=== PATIENT | female | born 2000 | race Caucasian/White ===

== ENCOUNTER 2020-01-02 00:23 | Emergency (ER) | payer OTHER, SELFPAY ==
[2020-01-02 00:40] VITALS: BP 155/85; PULSE 109; RESP 16; TEMP 36.7; O2SAT 98; BMI 37.1
--- NOTE | 2020-01-02 00:44 | ECG_ITS ---
Test Reason : SHOULDER PAIN Blood Pressure : / mmHG Vent. Rate : 079 BPM Atrial Rate : 079 BPM P-R Int : 142 ms QRS Dur : 090 ms QT Int : 378 ms P-R-T Axes : 038 058 040 degrees QTc Int : 433 ms Normal sinus rhythm Normal ECG No previous ECGs available Referred By: Suresh Whalen Electronically Signed By:TOYA TUTTLE MD
--- NOTE | 2020-01-02 00:48 | ED.BACK ---
HPI - Back Pain/Injury General Chief Complaint: General Medical Stated Complaint: SHOULDER PAIN Time Seen by Provider: 01/02/20 00:41 Source: patient Mode of arrival: ambulatory Limitations: no limitations History of Present Illness HPI Narrative: patient with no significant past medical history slept on the left side woke up just prior to arrival noticed pain in left upper back also feel heat feeling in the chest no shoulder pain as such good range of movement no shortness of breath no cough no prior back problems Related Data Allergies Allergy/AdvReac Type Severity Reaction Status Date / Time No Known Allergies Allergy Unverified 10/27/19 19:38 [No Known Allergies*] Review of Systems Review of Systems: REVIEW OF SYSTEMS: Pertinent positives and negatives are stated above in the history. GEN: no fevers, chills, fatigue HEENT: no nasal congestion, sore throat, ear pain NEURO: no headache, dizziness, focal weakness PULM: no cough, shortness of breath CV: no chest pain, palpitations, LE edema ABD: no abdominal pain, nausea, vomiting, diarrhea : no dysuria, urgency, frequency SKIN: no rash ROS otherwise negative x 10 Physical Exam Vital Signs: Vital Signs: Last Vital Signs Temp 98.1 F 01/02/20 00:40 Pulse 109 H 01/02/20 00:40 Resp 16 01/02/20 00:40 BP 155/85 H 01/02/20 00:40 Pulse Ox 98 01/02/20 00:40 Body Mass Index 37.1 Const: General: cooperative, healthy appearing, comfortable, no acute distress, well developed, alert and awake HENMT: Head: Yes normal to inspection Eyes: General: appearance normal, both eyes and all related structures Neck: Neck: Yes normal visual inspection and Yes full ROM Resp: Effort & Inspection: normal respiratory effort Auscultation: clear to auscultation bilaterally Cardio: Rate: regular rate Rhythm: regular rhythm Heart sounds: S1 normal heart sound present and S2 normal heart sound present GI: Inspection: Yes normal to inspection Palpation (GI): Soft to palpation, Firmness to palpation present (GI) and nontender : General: Yes no CVA tenderness Back/Spine/Pelvis: Back: no CVA tenderness Cervical Spine: normal cervical lordosis Back/spine/pelvis image: 1. tender area with muscle spasm or rash MDM - Back Pain/Injury MDM Narrative Medical decision making narrative: patient pain likely from muscular origin EKG is normal will discharge her home advised to use ice pack ECG Data Attestation: I personally reviewed and interpreted this ECG as follows: ECG interpretation date: 01/02/20 Interpretation: normal sinus rhythm heart rate 79 normal axis normal intervals no acute ST T wave changes impression normal EKG
== END 2020-01-02 01:40 | disposition home or self-care (01) ==
LOC: HO.ED 01:13
PROVIDERS: Emergency Provider Internal Medicine
DX: M25.519 Pain in unspecified shoulder (principal)
CPT/HCPCS: 93005; 99283

== ENCOUNTER 2020-01-23 11:58 | Outpatient (REF) | payer OTHER, SELFPAY | END 2020-01-23 11:59 | disposition home or self-care (01) | LOC: HO.LAB 11:58 | PROVIDERS: Visit Provider Internal Medicine | DX: Z20.828 Contact with and (suspected) exposure to other viral communicable diseases (principal) | CPT/HCPCS: C9803; U0003 ==

== ENCOUNTER 2020-04-23 14:55 | Emergency (ER) | payer OTHER, MEDICAID, SELFPAY ==
--- NOTE | 2020-04-23 15:22 | ED_ITS ---
HPI - General Adult General Chief complaint: General Medical Stated complaint: COVID POS VOMITING DIARRHEA Time Seen by Provider: 04/23/20 15:15 Source: patient Mode of arrival: ambulatory Limitations: no limitations History of Present Illness HPI narrative: 19 y/o female with recently diagnosed COVID-19 on 04/18 who presents with generally feeling unwell as well as new onset non-bloody vomiting and diarrhea that started yesterday. She denies abdominal pain. Denies chance of . She has been taking OTC Pepto with minimal improvement. She is able to tolerate some Gatorade today but that is it. She denies fevers or chills but has had ongoing mild dry cough since she was diagnosed with COVID. No recent antibiotic use, no sick contacts, no food bourne exposure. MD complaint: vomiting and diarrhea Onset (ago): day(s) (1) Severity: moderate Exacerbating factors: eating Associated symptoms: cough, headaches, loss of appetite and malaise Treatments prior to arrival: none Related Data Previous Rx's Medication Instructions Recorded ondansetron 4 mg PO Q6H PRN #8 tab 04/23/20 Allergies Allergy/AdvReac Type Severity Reaction Status Date / Time No Known Allergies Allergy Unverified 10/27/19 19:38 [No Known Allergies*] Review of Systems Review of Systems: Constitutional: No Fever, No Chills ENT/Mouth: No sore throat, No Rhinorrhea, No Swallowing Difficulty Cardiovascular: No Chest Pain, No SOB Respiratory: + Cough, No Sputum, No Wheezing, No dyspnea Gastrointestinal: + Nausea, + Vomiting, + Diarrhea, No abdominal Pain, No Hematochezia, No Melena Genitourinary: No Dysuria, No Urinary Frequency, No Hematuria Musculoskeletal: No joint pain, No Myalgias Skin: No Skin Lesions, No rash Neuro: No Weakness, No Numbness, No Dizziness, + Headache Heme/Lymph: No Bruising, No Lymphadenopathy PMFSH Past Medical History Attestation statement: The following information was validated with the patient. Social History Social History Alcohol intake: never Smoking Status: Never smoker Use of substances other than those prescribed or required for medical reasons: No Advance Directives: Yes Advance Directives Information Provided: Yes Advance Directives on File: No Physical Exam Vital Signs: Vital Signs: Last Vital Signs Temp 98.0 F 04/23/20 15:23 Pulse 62 04/23/20 15:23 Resp 16 04/23/20 15:23 BP 126/79 04/23/20 15:23 Pulse Ox 98 04/23/20 15:23 Body Mass Index 37.1 Appearance: Alert. Oriented X3. No acute distress. Eyes: Pupils equal, round and reactive to light. ENT: Pharynx normal. TM's normal bilaterally. Neck: Normal inspection. Neck supple. CVS: Normal heart rate and rhythm. Pulses normal. Respiratory: No respiratory distress. Breath sounds normal. Abdomen: Soft and nontender. +BS x4 Skin: Skin warm and dry. Normal skin color. Normal skin turgor. No rashes. Extremities: No lower extremity edema. Neuro: Oriented X 3. Non-focal. Steady gait. Course Course Course Narrative: 19 y/o female presenting with nausea, vomiting, diarrhea in the setting of COVID-19. She appears well on exam. Her VS are stable without tachycardia. Low clinical suspicion for dehydration. She is tolerating PO liquids. She has been counseled on the course of COVID and the symptomatic management of this. Lydiaan sent to pharmacy. She is stable for discharge with instructions to f/u with her PCP and return to the ER if symptoms worsen. Discharge Plan Discharge Clinical Impression: COVID-19 Vomiting Qualifiers: Vomiting type: unspecified Vomiting Intractability: unspecified Nausea presence: unspecified Qualified Code(s): R11.10 - Vomiting, unspecified Patient Disposition: Home, Self-Care Instructions: Acute Nausea and Vomiting (ED), COVID-19 (Coronavirus Disease 2019) (ED) Additional Instructions: Your vomiting and diarrhea is most likely due to COVID-19. Recommend supportive care with prescribed anti-nausea medication - take as pre scribed. Recommend over the counter Imodium 2-4 mg for diarrhea. Stick to a bland diet while you are feeling unwell. Follow up with your doctor this week. If your symptoms worsening or if you develop any new or concerning symptoms come back to the ER for further evaluation. Prescriptions: New ondansetron 4 mg tablet,disintegrating 4 mg PO Q6H PRN (Reason: nausea and vomiting) Qty: 8 RF: 0
[2020-04-23 15:23] VITALS: BP 126/79; PULSE 62; RESP 16; TEMP 36.7; O2SAT 98; BMI 37.1
== END 2020-04-23 16:36 | disposition home or self-care (01) ==
PROVIDERS: Emergency Provider Emergency Medicine
DX: U07.1 COVID-19 (principal); R11.10 Vomiting, unspecified; R19.7 Diarrhea, unspecified
CPT/HCPCS: 99283; 99284

== ENCOUNTER 2023-01-26 09:11 | Emergency (ER) | payer MEDICAID, SELFPAY ==
--- NOTE | ~2023-01-26 | US_ITS ---
EXAMINATION: ULTRASOUND PELVIC, COMPLETE CLINICAL INFORMATION: Nausea and vomiting. Unknown LMP. Beta-hCG 37,765 COMPARISON: None. TECHNIQUE: Transvaginal: Used to better visualize pelvic structures Transabdominal: Not adequate for visualization. Spectral Doppler and color Doppler exam was utilized. LMP: Uncertain FINDINGS: UTERUS: Single intrauterine gestation present. There is a yolk sac or pole present. heart rate 106 bpm. Latexo-rump length 0.25 cm. Gestational age by this measurement is 5 weeks 6 days. ADNEXA: Ovarian vascularity:Doppler demonstrates both arterial and venous vascular flow in the right and left ovary. No evidence of ovarian torsion. Right Ovary: 3.2 x 1.8 x 1.8 cm Left Ovary: 3.8 x 2.1 x 2.3 cm Cul-de-sac: No Fluid US/US OB pelvic and transvaginal IMPRESSION: 1. Single intrauterine gestation. Estimated gestational age by this exam is 5 weeks 6 days. 2. heart rate measured at 106 beats per minute which is low. This may be due to early gestational age. Consider short-term follow-up in 2-3 weeks.
[2023-01-26 09:21] VITALS: BP 133/64; PULSE 75; RESP 20; TEMP 36.6; O2SAT 99
[2023-01-26 09:32] LABS: Baso%MD 0.4 %; Eos%MD 0.2 %; Hematocrit 40.6 % (37.0-47.0); Hemoglobin 13.7 g/dl (12.0-16.0); IG%MD 0.3 %; Lymph%MD 13.4 %; Mean Corpuscular HGB Conc 33.7 g/dl (31.0-35.0); Mean Corpuscular Hemoglobin 29.6 pg (27.0-33.0); Mean Corpuscular Volume 87.7 fL (80.0-98.0); Mean Platelet Volume 9.8 fL (9.4-12.3); Neut%MD 78.7 %; Platelet Count 440 X10*3/uL (160-400); Red Blood Count 4.63 X10*6/uL (4.20-5.50); Red Cell Distribution Width 12.1 % (11.0-16.0); White Blood Count 15.3 X10*3/uL (4.8-10.8)
[2023-01-26 09:52] LABS: Anion Gap 13 (12-20); Blood Urea Nitrogen 11 mg/dL (9-16); Calcium 9.7 mg/dL (8.4-10.2); Carbon Dioxide 22 mmol/L (22-29); Chloride 104 mmol/L (96-108); Creatinine Clr Calc Pharmacy 134.8; Estimated Glomerular Filt Rate > 60; Glucose Random 105 mg/dL (60-115); Potassium 3.3 mmol/L (3.3-5.1); Sodium 136 mmol/L (135-145)
[2023-01-26 10:00] LABS: Band Neutrophils Percent 0 % (3-5); Eosinophils Absolute Manual 0.2 X10*3/uL (0.0-0.4); Eosinophils Percent Manual 1 % (0-4); Lymphocytes Percent Manual 13 % (20-40); Monocytes Absolute Manual 1.1 X10*3/uL (0.1-1.2); Monocytes Percent Manual 7 % (2-11); Neutrophils Absolute Manual 12.1 X10*3/uL (2.0-8.3); Neutrophils Percent Manual 79 % (45-73)
[2023-01-26 10:01] LABS: Platelet Estimate NORMAL (NORMAL); Platelet Morphology Comment NORMAL; RBC Morphology NORMAL
[2023-01-26 10:11] LABS: HCG Quantitative 37765 mIU/mL
[2023-01-26 11:51] LABS: Influenza A PCR NEGATIVE (Negative); Influenza B PCR NEGATIVE (Negative); Resp Syncy Virus RNA Qual PCR NEGATIVE (Negative); SARS COV2 PCR INHOUSE NEGATIVE (Negative)
[2023-01-26 16:17] VITALS: BP 126/74; PULSE 74; RESP 18; TEMP 37.1; O2SAT 100
--- NOTE | 2023-01-26 16:19 | PC.NURSE ---
Patient states she is and doesn't know how far along she is.
--- NOTE | 2023-01-26 16:43 | ED_ITS ---
HPI - Nausea/Vomiting/Diarrhea General Chief complaint: Nausea/Vomiting/Diarrhea Stated complaint: vomiting Time Seen by Provider: 01/26/23 16:18 Source: patient Mode of arrival: ambulatory Limitations: no limitations History of Present Illness HPI Narrative: A 22-year-old female who presents emergency department for evaluation of nausea, vomiting with bilious emesis for the past 2 days and a single episode of diarrhea today. She states she has been unable to tolerate oral intake due to her nausea and vomiting. She reports generalized lower abdominal discomfort. Patient reports that she took a home test at the end of December and found out that she was . Her last menstrual period was 11/14/2022 making her estimated due date 08/22/23. She has her first appointment scheduled for 02/16/2022 with [facility]. She reports that 1 week ago she was treated for urinary tract infection with an antibiotic, she is uncertain the name of it. Related Data Previous Rx's Medication Instructions Recorded ondansetron 4 mg disintegrating 4 mg PO Q6H PRN nausea and 04/23/20 tablet vomiting #8 tabs cefuroxime axetil 250 mg tablet 250 mg PO BID #13 tabs 01/26/23 doxylamine succinate 25 mg tablet 25 mg PO BEDTIME PRN vomiting #14 01/26/23 (Unisom (doxylamine)) tabs pyridoxine (vitamin B6) 25 mg 25 mg PO TID 7 days #21 tabs 01/26/23 tablet Allergies Allergy/AdvReac Type Severity Reaction Status Date / Time No Known Allergies Allergy Unverified 10/27/19 19:38 [No Known Allergies*] Review of Systems 2 Review of Systems: Yes all other systems are reviewed and are negative [facility] Past Medical History Attestation statement: The following information was validated with the patient. Source: old records reviewed Social History Social History Alcohol intake: never Advance Directives: No Advance Directives Information Provided: No Physical Exam 2 Vital Signs: Vital Signs: Last Vital Signs Temp 98.8 F 01/26/23 16:17 Pulse 74 01/26/23 16:17 Resp 18 01/26/23 16:17 BP 126/74 01/26/23 16:17 Pulse Ox 100 01/26/23 16:17 O2 Del Method Room Air 01/26/23 16:17 BMI result Body Mass Index 30.0 Appearance: Alert.?Oriented to person, place and time. No acute distress.?Normal affect. Eyes: Pupils equal, round and reactive to light.? ENT: Pharynx normal.?? Neck: Normal inspection.? Neck supple.?? CVS: Heart sounds normal. Normal heart rate and rhythm.? Pulses normal.?? Respiratory: No respiratory distress.? Lung sounds clear to auscultation bilaterally?? Abdomen: Soft and non-tender. Normoactive bowel sounds. No CVA tenderness. Skin: Skin warm and dry.? Normal skin color.? Extremities: No lower extremity edema.? Neuro: Moves all extremities spontaneously. Sensation intact bilaterally. No focal neuro deficits. Ambulates with normal steady gait. Course Reevaluation(s) Reevaluation #1: Patient is able to tolerate oral intake. Ultrasound revealing a single intrauterine gestation with gestational age approximately 5 weeks 6 days, heart rate is noted to be 106, may be secondary to early gestation, however it is recommended for short-term follow-up within 2-3 weeks, she has an already scheduled appointment with her OB for this time frame. Discussed this with patient. At this time she is tolerating oral intake, reviewed medications to be sent pharmacy to help with nausea and vomiting during , advised to continue to take her vitamin. Her urinalysis at this time is concerning for possible persistent urinary tract infection verses urogenital contamination, given she is currently will prescribe course of antibiotic treatment, urine culture to be followed. Reviewed worrisome signs and symptoms that would warrant re-evaluation emergency department. All questions answered. Stable for discharge. Medications Administered Discontinued Medications Generic Name Dose Route Start Last Admin Trade Name Freq PRN Reason Stop Dose Admin Cefuroxime Axetil 250 mg 01/26/23 18:40 01/26/23 18:51 Cefuroxime Axetil 250 Mg Tablet PO 01/26/23 18:41 250 mg ONCE ONE Administration Sodium Chloride 1,000 mls @ 999 mls/hr 01/26/23 16:45 01/26/23 18:52 Ns IV 01/26/23 17:45 Infused .Q1H1M CHRISTOPH Infusion Ondansetron HCl 4 mg 01/26/23 16:35 01/26/23 16:59 Ondansetron Hcl 4 Mg/2 Ml Vial IVPUSH 01/26/23 16:36 4 mg ONCE ONE Administration Medical Decision Making Medical Decision Making [facility] Narrative: Patient is a 22-year-old female with no reported past medical history presenting to the emergency department for evaluation of nausea vomiting in the setting of . Overall she is well-appearing, nontoxic, afebrile. Her physical examination is benign. Not consistent with acute abdomen. Reviewed labs obtained prior to my assumption of care, she has leukocytosis of 15.3 this may be secondary to vomiting hours around likely ago see Kayla viral syndrome. BMP is unremarkable. HCG consistent with gestation greater than 6 weeks, viral testing is negative. LFTs and lipase are normal. urinalysis is pending. Patient to receive 1 L normal saline IV fluid, Zofran IV for nausea, she does endorse mild lower abdominal pain, plan to obtain pelvic ultrasound for further evaluation. Differential Diagnosis Differential Diagnoses: The differential diagnosis associated with the presentation includes ( nausea and vomiting associated with 1st trimester of , urinary tract infection, viral syndrome. less likely pyelonephritis, ovarian torsion, ruptured ovarian cyst, diverticulitis, appendicitis.) Admission/Observation Consideration of admission/observation: Escalation of care including admission/observation considered (See narrative above and course narrative for further detail) Lab Data MDM Lab Attestation statement: I reviewed the patient's lab results. (See narrative above) 01/26/23 09:27 01/26/23 09:27 Labs: Lab Results 01/26/23 01/26/23 Range/Units 09:27 18:23 WBC 15.3 H (4.8-10.8) X10*3/uL RBC 4.63 (4.20-5.50) X10*6/uL Hgb 13.7 (12.0-16.0) g/dl Hct 40.6 (37.0-47.0) % MCV 87.7 (80.0-98.0) fL MCH 29.6 (27.0-33.0) pg MCHC 33.7 (31.0-35.0) g/dl RDW 12.1 (11.0-16.0) % Plt Count 440 H (160-400) X10*3/uL MPV 9.8 (9.4-12.3) fL Absolute Nucleated RBC 0.000 (0.0-0.012) X10*3/uL Nucleated RBC % (auto) 0.0 (0.0-0.2) /100WBC Neutrophils % (Manual) 79 H (45-73) % Band Neutrophils % 0 L (3-5) % Lymphocytes % (Manual) 13 L (20-40) % Monocytes % (Manual) 7 (2-11) % Eosinophils % (Manual) 1 (0-4) % Abs Neuts (Manual) 12.1 H (2.0-8.3) X10*3/uL Lymphocytes # (Manual) 2.0 (1.2-4.9) X10*3/uL Monocytes # (Manual) 1.1 (0.1-1.2) X10*3/uL Eosinophils # (Manual) 0.2 (0.0-0.4) X10*3/uL Platelet Estimate NORMAL (NORMAL) Plt Morphology Comment NORMAL RBC Morphology NORMAL Sodium 136 (135-145) mmol/L Potassium 3.3 (3.3-5.1) mmol/L Chloride 104 (96-108) mmol/L Carbon Dioxide 22 (22-29) mmol/L Anion Gap 13 (12-20) BUN 11 (9-16) mg/dL Creatinine 0.71 (0.5-1.4) mg/dL Estim Creat Clear Calc 134.8 Estimated GFR > 60 Random Glucose 105 (60-115) mg/dL Calcium 9.7 (8.4-10.2) mg/dL Total Bilirubin 0.7 (0.0-1.0) mg/dL Direct Bilirubin 0.2 (0.0-0.5) mg/dL AST 12 (5-31) U/L ALT 7 (0-31) U/L Alkaline Phosphatase 51 (39-117) U/L Total Protein 7.5 (6.5-8.0) g/dL Albumin 4.2 (3.5-5.0) g/dL Lipase 11 (8-78) U/L Beta HCG, Quant 35595 mIU/mL Urine Color Yellow Urine Appearance Cloudy Urine pH 6.0 (5.0-9.0) Ur Specific [place] >= 1.030 H (1.005-1.025) Urine Protein Trace (Neg-Trace) mg/dL Urine Glucose (UA) Negative (Negative) mg/dL Urine Ketones 40 (Negative) mg/dL Urine Blood Trace H (Negative) Urine Nitrite Negative (Negative) Ur Leukocyte Esterase Trace H (Negative) Urine RBC 3-5 H (0-2) /HPF Urine WBC 0-5 (0-5) /HPF Ur Squamous Epith Cells 11-20 (0-2) /HPF Urine Bacteria 2+ (None Seen) Hyaline Casts 0-2 (0-2) /LPF Influenza Type A (PCR) NEGATIVE (Negative) Influenza Type B (PCR) NEGATIVE (Negative) RSV RNA Qual (PCR) NEGATIVE (Negative) SARS-CoV-2 RNA (RT-PCR) NEGATIVE (Negative) Independent Interpretation I performed an independent interpretation of an: Ultrasound Radiology Impression Discussion of test interpretation with radiology: I have reviewed the radiologist's reading. Radiologist Impression: US/US OB pelvic and transvaginal IMPRESSION: 1. Single intrauterine gestation. Estimated gestational age by this exam is 5 weeks 6 days. 2. heart rate measured at 106 beats per minute which is low. This may be due to early gestational age. Consider short-term follow-up in 2-3 weeks. Independent Historian Clinical information obtained from an independent historian. History obtained from or confirmed by: Spouse Discharge Plan Discharge Clinical Impression: Nausea and vomiting in prior to 22 weeks gestation, Urinary tract infection Patient Disposition: Home, Self-Care Instructions: Nausea and Vomiting in (ED), Urinary Tract Infection in (ED) Additional Instructions: Complete the entire course of antibiotics as prescribed. Based on the date of your last menstrual period, your estimated due date is 08/22/2023. Based on your ultrasound today you are estimated to be 5 weeks, 6 days. Please contact your OB provider to arrange for a follow-up visit with any additional concerns.. You may return back to emergency department with any new or worsening symptoms or concerns. Prescriptions: New cefuroxime axetil 250 mg tablet 250 mg PO BID Qty: 13 0RF pyridoxine (vitamin B6) 25 mg tablet 25 mg PO TID 7 Days Qty: 21 0RF Unisom (doxylamine) 25 mg tablet 25 mg PO BEDTIME PRN (Reason: vomiting) Qty: 14 0RF No Action ondansetron 4 mg tablet,disintegrating 4 mg PO Q6H PRN (Reason: nausea and vomiting) Qty: 8 0RF Referrals: Physician,None [Primary Care Provider] - Stand Alone Forms: Work/School Release Interventions: ED Discharge Assessment Last Done: 01/26/23 20:13 Discharge Date/Time: 01/26/23 20:16
[2023-01-26 16:51] LABS: Alanine Aminotransferase 7 U/L (0-31); Albumin Level 4.2 g/dL (3.5-5.0); Alkaline Phosphatase 51 U/L (39-117); Aspartate Amino Transferase 12 U/L (5-31); Bilirubin Direct 0.2 mg/dL (0.0-0.5); Bilirubin Total 0.7 mg/dL (0.0-1.0); Lipase 11 U/L (8-78); Total Protein 7.5 g/dL (6.5-8.0)
[2023-01-26] MEDS: 0.9 % Sodium Chloride 1,000 ML 999 ML IV (16:54)
[2023-01-26] MEDS: ondansetron HCL 4 MG/2 ML VIAL IVPUSH (16:59)
[2023-01-26 18:34] LABS: Appearance Urine Cloudy; Color Urine Yellow; Glucose Urine UA Negative (Negative); Leukocyte Esterase Urine Trace (Negative); Nitrite Urine Negative (Negative); Specific Gravity - Urine >= 1.030 (1.005-1.025); UMIC TRIGGER UACC YES; Urine Blood Trace (Negative); Urine Ketones 40 mg/dL (Negative); Urine Protein Trace mg/dL (Neg-Trace)
[2023-01-26 18:38] LABS: Bacteria Urine 2+ (None Seen); Hyaline Casts Urine 0-2 /LPF (0-2); WBC Urine 0-5 /HPF (0-5)
[2023-01-26] MEDS: cefuroxime axetiL 250 MG TABLET PO (18:51)
== END 2023-01-26 20:16 | disposition home or self-care (01) ==
PROVIDERS: Nurse Practitioner Family; Emergency Provider Internal Medicine
DX: O21.0 Mild hyperemesis gravidarum (principal); Z3A.22 22 weeks gestation of pregnancy; Z20.822 Contact with and (suspected) exposure to COVID-19; Z20.828 Contact with and (suspected) exposure to other viral communicable diseases; Z79.899 Other long term (current) drug therapy
CPT/HCPCS: 0241U; 76801; 76817; 80048; 80076; 81001; 83690; 84702; 85007; 85027; 96361; 96374; 99284; J2405